=== PATIENT | female | born 1980 | race Caucasian/White ===

== ENCOUNTER 2022-09-01 17:07 | Emergency (ER) | payer MEDICAID ==
[~2022-09-01] VITALS: Ht 167.6 cm; Wt 167.0 kg
[2022-09-01 18:40] VITALS: BP 149/93
[2022-09-01] MEDS ORDERED: TETanus/Pertussis (Acell)/Diphther VAC/PF (Tdap-Adult) 0.5ml syringe IMVAC ONE (19:30)
[2022-09-01] MEDS ORDERED: cephalexin 500mg capsule PO ONE (19:30)
[2022-09-01] MEDS ORDERED: LIDOcaine 1% 30ml preserv. free vial IJ ONE (19:30)
[2022-09-01] MEDS ORDERED: bacitracin 15gm ointment TP ONE (19:30)
[2022-09-01] MEDS ORDERED: CEPH-585 PO (19:48)
== END 2022-09-01 20:30 | disposition home or self-care (01) ==
LOC: ER 17:08
DX: L03.90 Cellulitis, unspecified (principal); E11.9 Type 2 diabetes mellitus without complications; Z88.5 Allergy status to narcotic agent; Z79.899 Other long term (current) drug therapy
CPT/HCPCS: 90471; 90715; 99283; A6449